=== PATIENT | female | born 1950 | race Caucasian/White ===

== ENCOUNTER 2017-02-24 07:57 | Outpatient (CLI) | payer OTHER ==
[2015-12-11 15:57] VITALS: BMI 36.6
--- NOTE | 2017-02-24 08:52 | CT ---
EXAM: CT cervical spine without contrast. HISTORY: Neck pain. COMPARISON: 03/25/2014. TECHNIQUE: Multiple axial images of the cervical spine were obtained without intravenous contrast. Images were reformatted in the sagittal and coronal planes. FINDINGS: ACDF changes noted at C3-C5. Hardware appears intact. There are is some osseous incorpo ration across the C3-4. There is probably mild osseous incorporation across C4-5. There is approxi mately 0.2 cm anterolisthesis of C5 on C6. Alignment is otherwise normal. Vertebral body heights a re maintained. There is moderate loss of disc height at C5-6 and C6-7. No acute fracture identifie d. Paravertebral soft tissues are without acute abnormality. C2-3: No neural compromise. C3-4: Uncovertebral hypertrophy and facet arthropathy with moderate to severe left neural foraminal narrowing. C4-5: Residual endplate osteophyte formation, uncovertebral hypertrophy and facet arthropathy with flattening of the ventral thecal sac and moderate bilateral neural foraminal narrowing. C5-6: Disc osteophyte formation, uncovertebral hypertrophy and facet arthropathy with mild moderate central canal stenosis and minimal right and moderate left neural foraminal narrowing. C6-7: Disc osteophyte formation, uncovertebral hypertrophy and facet arthropathy with mild moderate central canal stenosis and moderate bilateral neural foraminal narrowing. C7-T1: Uncovertebral hypertrophy and facet arthropathy with mild left neural foraminal narrowing. IMPRESSION: 1. ACDF changes at C3-C5. 2. 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
== END 2017-02-24 07:58 | disposition home or self-care (01) ==
LOC: RAD 07:57
PROVIDERS: ATTEND Internal Medicine
DX: M54.2 Cervicalgia (principal)